=== PATIENT | male | born 1970 | race Caucasian/White ===

== ENCOUNTER 2016-11-16 12:45 | Emergency (ER) | payer OTHER ==
[2017-03-08] MEDS ORDERED: DICYCLOMINE HCL20 MG PO (21:40)
[2017-03-08] MEDS ORDERED: DILANTIN100 MG PO ×2 (21:40→21:41)
[2017-03-08] MEDS ORDERED: LISINOPRIL20 MG PO (21:41)
[2017-03-08] MEDS ORDERED: SINGULAIR10 MG PO (21:42)
[2017-03-08] MEDS ORDERED: METOCLOPRAMIDE10 MG PO (21:42)
[2017-03-08] MEDS ORDERED: CLARITIN10 MG PO (21:42)
[2017-03-08] MEDS ORDERED: PANTOPRAZOLE SO40 MG PO (21:51)
[2017-03-08] MEDS ORDERED: ZANTAC300 MG PO (21:52)
[2017-03-08] MEDS ORDERED: PRAVASTATIN SOD40 MG PO (21:52)
[2017-03-08] MEDS ORDERED: LORTAB 7.5-3251 EACH PO (21:53)
[2017-03-08] MEDS ORDERED: SYMBICORT 160-1 INHA INH (21:54)
[2017-03-08] MEDS ORDERED: NITROGLYCERIN0.4 MG SL (21:55)
[2017-03-09] MEDS ORDERED: NEURONTIN300 MG PO (16:24)
== END 2016-11-16 13:39 | disposition home or self-care (01) ==
LOC: ER1 12:45
DX: S39.012A Strain of muscle, fascia and tendon of lower back, initial encounter (principal); J45.909 Unspecified asthma, uncomplicated; Z88.0 Allergy status to penicillin; Z88.2 Allergy status to sulfonamides; Z79.899 Other long term (current) drug therapy; X58.XXXA Exposure to other specified factors, initial encounter
CPT/HCPCS: 96372; 99283; J1885

== ENCOUNTER 2017-02-14 11:14 | Emergency (ER) | payer OTHER ==
[2017-03-08] MEDS ORDERED: DILANTIN100 MG PO ×2 (21:40→21:41)
[2017-03-08] MEDS ORDERED: DICYCLOMINE HCL20 MG PO (21:40)
[2017-03-08] MEDS ORDERED: LISINOPRIL20 MG PO (21:41)
[2017-03-08] MEDS ORDERED: CLARITIN10 MG PO (21:42)
[2017-03-08] MEDS ORDERED: SINGULAIR10 MG PO (21:42)
[2017-03-08] MEDS ORDERED: METOCLOPRAMIDE10 MG PO (21:42)
[2017-03-08] MEDS ORDERED: PANTOPRAZOLE SO40 MG PO (21:51)
[2017-03-08] MEDS ORDERED: ZANTAC300 MG PO (21:52)
[2017-03-08] MEDS ORDERED: PRAVASTATIN SOD40 MG PO (21:52)
[2017-03-08] MEDS ORDERED: LORTAB 7.5-3251 EACH PO (21:53)
[2017-03-08] MEDS ORDERED: SYMBICORT 160-1 INHA INH (21:54)
[2017-03-08] MEDS ORDERED: NITROGLYCERIN0.4 MG SL (21:55)
[2017-03-09] MEDS ORDERED: NEURONTIN300 MG PO (16:24)
== END 2017-02-14 12:16 | disposition home or self-care (01) ==
LOC: ER1 11:14
DX: M71.22 Synovial cyst of popliteal space [Baker], left knee (principal); G89.29 Other chronic pain; F17.210 Nicotine dependence, cigarettes, uncomplicated; Z88.0 Allergy status to penicillin; Z88.2 Allergy status to sulfonamides; Z91.041 Radiographic dye allergy status
CPT/HCPCS: 99283; J1885

== ENCOUNTER 2021-02-24 17:00 | Emergency (ER) | payer OTHER ==
[~2021-02-24 17:00] MED LIST: CLARITIN10 MG PO; DICYCLOMINE HCL20 MG PO; DILANTIN100 MG PO; IBUPROFEN600 MG PO; LISINOPRIL20 MG PO; LORTAB 7.5-3251 EACH PO; METOCLOPRAMIDE10 MG PO; NEURONTIN300 MG PO; NITROGLYCERIN0.4 MG SL; PANTOPRAZOLE SO40 MG PO; PRAVASTATIN SOD40 MG PO; SINGULAIR10 MG PO; SYMBICORT 160-1 INHA INH; ZANTAC300 MG PO
[2021-02-24 18:07] LABS: HEMOGLOBIN 15.5 gm/dl (14.0-17.5); RED BLOOD COUNT 4.53 M/UL (4.20-5.50); WHITE BLOOD COUNT 6.6 K/UL (4.5-11.0)
[2021-02-24 18:36] LABS: BUN/CREATININE RATIO 13 (0-10)
[2021-02-24] MEDS ORDERED: CEPHALEXIN500 M1 PO (21:49)
== END 2021-02-24 22:12 | disposition home or self-care (01) ==
LOC: ER1 17:00
PROVIDERS: Physician Assistant
DX: N39.0 Urinary tract infection, site not specified (principal); R33.9 Retention of urine, unspecified; N50.812 Left testicular pain; R07.89 Other chest pain; E78.5 Hyperlipidemia, unspecified; J45.909 Unspecified asthma, uncomplicated; I10 Essential (primary) hypertension; G40.909 Epilepsy, unspecified, not intractable, without status epilepticus; F17.200 Nicotine dependence, unspecified, uncomplicated; Z90.49 Acquired absence of other specified parts of digestive tract; Z88.8 Allergy status to other drugs, medicaments and biological substances; Z88.1 Allergy status to other antibiotic agents
CPT/HCPCS: 71045; 76870; 80053; 81001; 82550; 82553; 83874; 84484; 85025; 93005; 96374; 99284; J1885